=== PATIENT | female | born 1990 | race Hispanic/Latino ===

== ENCOUNTER 2017-09-26 09:33 | Outpatient (CLI) | payer BC ==
[~2017-09-26 09:33] MED LIST: TRI-ESTARYLLA1 EACH PO; VALIUM5 MG PO; ZANAFLEX2 M1 PO
[2017-09-26 09:57] VITALS: BP 121/74
== END 2017-09-26 10:40 | disposition home or self-care (01) ==
LOC: LDRP-OP 09:33 → 2WEST 09:34 → LDRP-OP 11-04 09:48
DX: O26.893 Other specified pregnancy related conditions, third trimester (principal); Z3A.38 38 weeks gestation of pregnancy
CPT/HCPCS: 59025; G0378

== ENCOUNTER 2017-09-29 01:35 | Outpatient (CLI) | payer BC ==
[~2017-09-29] VITALS: Ht 162.6 cm; Wt 93.0 kg
[2017-09-29 02:07] VITALS: BP 104/60
[2017-09-29 06:53] VITALS: BP 129/72
== END 2017-09-29 07:20 | disposition home or self-care (01) ==
LOC: LDRP-OP 01:35 → 2WEST 01:36 → LDRP-OP 11-02 11:34
DX: O47.1 False labor at or after 37 completed weeks of gestation (principal); Z3A.39 39 weeks gestation of pregnancy
CPT/HCPCS: 59025; G0378

== ENCOUNTER 2017-09-30 21:24 | Inpatient (IN) | payer BC ==
[~2017-09-30] VITALS: Ht 162.6 cm; Wt 89.8 kg
[2017-09-30 21:39] VITALS: BP 129/79
[2017-09-30 22:24] VITALS: BP 130/87
[2017-09-30 22:36] LABS: BASOPHIL (%) 0.1 % (0-1); EOSINOPHIL (%) 0.3 % (0-5); EOSINOPHIL COUNT 0.1 K/uL (0-0.3); HEMATOCRIT 33.1 % (36.0-46.0); HEMOGLOBIN 10.8 G/DL (11.9-15.5); IMMATURE GRANULOCYTE (%) 0.8 % (0.0-0.7); LYMPHOCYTE (%) 11.6 % (15-42); LYMPHOCYTE COUNT 1.7 K/uL (1.0-2.8); MCH 27.6 PG (29.0-34.0); MCHC 32.6 G/DL (30.0-36.0); MCV 84.7 FL (83-99); MONOCYTE (%) 6.5 % (3-12); NEUTROPHIL (%) 80.7 % (45-76); NEUTROPHIL COUNT 11.8 K/uL (1.8-6.4); PLATELET COUNT 221 K/uL (156-360); RBC DIS.WIDTH-SD 39.3 % (39-53); RED BLOOD COUNT 3.91 M/uL (3.80-5.20); WHITE BLOOD COUNT 14.6 K/uL (4.1-10.2)
[2017-09-30 23:43] VITALS: BP 120/77
[2017-10-01] VITALS (21 sets, daily range): BP systolic 92–147; BP diastolic 55–76
[2017-10-01] MEDS ORDERED: PRENATAL TABLE1 EAC3 PO (01:26)
[2017-10-01 05:22] LABS: BASOPHIL (%) 0.2 % (0-1); EOSINOPHIL (%) 0 % (0-5); HEMATOCRIT 30.1 % (36.0-46.0); HEMOGLOBIN 9.9 G/DL (11.9-15.5); IMMATURE GRANULOCYTE (%) 0.8 % (0.0-0.7); LYMPHOCYTE (%) 5.3 % (15-42); LYMPHOCYTE COUNT 1.2 K/uL (1.0-2.8); MCHC 32.9 G/DL (30.0-36.0); MONOCYTE (%) 4.4 % (3-12); NEUTROPHIL (%) 89.3 % (45-76); NEUTROPHIL COUNT 20.9 K/uL (1.8-6.4); RBC DIS.WIDTH-CV 12.9 % (11.8-14.6); RBC DIS.WIDTH-SD 40.4 % (39-53); RED BLOOD COUNT 3.54 M/uL (3.80-5.20); WHITE BLOOD COUNT 23.4 K/uL (4.1-10.2)
[2017-10-01 06:20] LABS: PLAT.SUFFICIENCY ADEQUATE; PLATELET COUNT 224 K/uL (156-360)
[2017-10-01 12:43] LABS: HEMATOCRIT 27.4 % (36.0-46.0); HEMOGLOBIN 8.9 G/DL (11.9-15.5); MCHC 32.5 G/DL (30.0-36.0); MCV 86.2 FL (83-99); PLATELET COUNT 211 K/uL (156-360); RBC DIS.WIDTH-CV 13.2 % (11.8-14.6); RBC DIS.WIDTH-SD 41.1 % (39-53); RED BLOOD COUNT 3.18 M/uL (3.80-5.20); WHITE BLOOD COUNT 24.9 K/uL (4.1-10.2)
[2017-10-01] MEDS ORDERED: DOCUSATE SODIU100 MG PO (13:42)
[2017-10-01] MEDS ORDERED: IBUPROFEN800 MG PO (13:42)
[2017-10-01] MEDS ORDERED: FEOSOL325 MG PO (13:42)
[2017-10-02 14:01] VITALS: BP 115/62
== END 2017-10-02 15:52 | disposition home or self-care (01) | DRG 774 ==
LOC: LDRP-OP 21:24 → 2WEST 21:25 → LDRP-OP 11-02 07:36
PROVIDERS: Midwife; Obstetrics & Gynecology Obstetrics
DX: O70.0 First degree perineal laceration during delivery (principal); O72.1 Other immediate postpartum hemorrhage; O99.62 Diseases of the digestive system complicating childbirth; Z3A.39 39 weeks gestation of pregnancy; Z37.0 Single live birth; K21.9 Gastro-esophageal reflux disease without esophagitis
CPT/HCPCS: 59025; 85025; 85027; 86850; 86900; 86901; G0378; J0595; J2210; J2270; J2590

== ENCOUNTER 2017-11-27 09:57 | Emergency (ER) | payer OTHER ==
[~2017-11-27] VITALS: Ht 162.6 cm; Wt 82.7 kg
[~2017-11-27 09:57] MED LIST changes: +DOCUSATE SODIU100 MG PO; +FEOSOL325 MG PO; +IBUPROFEN800 MG PO; +PRENATAL TABLE1 EAC3 PO
[2017-11-27 10:52] LABS: HEMATOCRIT 40.8 % (36.0-46.0); HEMOGLOBIN 13.7 G/DL (11.9-15.5); MCH 29.2 PG (29.0-34.0); MCHC 33.6 G/DL (30.0-36.0); PLATELET COUNT 279 K/uL (156-360); RBC DIS.WIDTH-CV 13.2 % (11.8-14.6); RBC DIS.WIDTH-SD 41.2 % (39-53); RED BLOOD COUNT 4.69 M/uL (3.80-5.20); WHITE BLOOD COUNT 6.8 K/uL (4.1-10.2)
[2017-11-27 11:04] LABS: D-DIMER ELISA < 150.00 ng/mLDDU (<230)
[2017-11-27 11:05] LABS: CHLORIDE 104 mEq/L (99-109); SODIUM 137 mEq/L (136-147)
[2017-11-27 11:06] LABS: GLUCOSE 98 mg/dL (70-99)
[2017-11-27 11:10] LABS: CREATININE 0.7 mg/dL (0.6-1.3); GFR ESTIMATE (CALCULATED) > 59 mL/min/
[2017-11-27 11:11] LABS: UREA NITROGEN (BUN) 10 mg/dL (9-23)
[2017-11-27 11:15] LABS: TROP-I INTERPRETATION NEGATIVE; TROPONIN-I < 0.01 ng/mL (0.0-0.30)
[2017-11-27] MEDS ORDERED: MOTRIN800 MG PO (13:16)
[2017-11-27 14:19] VITALS: BP 108/68
== END 2017-11-27 14:19 | disposition home or self-care (01) ==
LOC: EME 09:57
PROVIDERS: Emergency Medicine
DX: R07.89 Other chest pain (principal); Z88.0 Allergy status to penicillin; Z88.1 Allergy status to other antibiotic agents
CPT/HCPCS: 71275; 80048; 84484; 85027; 85379; 93005; 99281; 99285; J7030